=== PATIENT | female | born 1970 | race Caucasian/White ===

== ENCOUNTER 2017-08-23 05:30 | Emergency (ER) | payer BC, OTHER ==
[2017-08-23 05:51] VITALS: BP 132/88; PULSE 79; TEMP 98; BMI 21.1
[2017-08-23] MEDS ORDERED: PHENAZOPYRIDINE HCL 100 MG TABLET (FP) PO ONE (05:59)
[2017-08-23 06:04] LABS: URINE APPEARANCE CLOUDY; URINE BILIRUBIN NEGATIVE (NEGATIVE); URINE BLOOD 2+ (NEGATIVE); URINE COLOR RED; URINE GLUCOSE (UA) NEGATIVE (NEGATIVE); URINE KETONE NEGATIVE (NEGATIVE); URINE NITRITE NEGATIVE (NEGATIVE); URINE UROBILINOGEN NEGATIVE mg/dL (0.2-1.0)
[2017-08-23 06:06] LABS: URINE PROTEIN 2+ (NEGATIVE)
[2017-08-23 06:13] LABS: URINE MUCUS RARE; URINE RBC 5640 /hpf (0-3); URINE WBC 359 /hpf (3-5)
--- NOTE | 2017-08-23 06:17 | PDOC ---
History of Present Illness - General Chief Complaint: Urinary Problem Stated Complaint: URINARY TRACT INFECTION Time Seen by Provider: 08/23/17 06:11 History Source: Patient Exam Limitations: No Limitations - History of Present Illness Initial Comments: 08/23/17 06:15 This is a 47-year-old female who comes in complaining of urinary frequency dysuria and some blood in her urine times several hours. Patient has history of UTI with similar symptoms in the past. Patient denies any back pain flank pain fevers chills nausea vomiting or diarrhea. PAST MEDICAL HISTORY: no significant history PAST SURGICAL HISTORY: no significant history FAMILY HISTORY: no pertinant history SOCIAL HISTORY: Pt lives with family and is employed. MEDICATIONS: reviewed ALLERGIES: As per nursing notes Review of Systems General: No fevers or chills, no weakness, no weight loss HEENT: No change in vision. No sore throat,. No ear pain CardioVascular: No chest pain or shortness of breath Respiratory:No cough, or wheezing. Gastrointestinal: no nausea, vomitting, diarrhea or constipation, No rectal bleeding Genitourinary: Positive history of frequency, dysuria and hematuria Musculoskeletal: No joint or muscle pain or swelling Neurologic: No headache, vertigo, dizziness or loss of consciousness Psychiatric: nor depression Skin: No rashes or easy bruising Endocrine: no increased thirst or abnormal weight change Allergic: no skin or latex allergy All other systems reviewed and normal Exam: General: Well-nourished well-developed individual, no acute distress HEENT: Throat: Normal, tonsils normal, no erythema or exudate Neck: Supple, no meningeal signs, no lymphadenopathy Eyes::Pupils equal reactive and round, extraocular motion intact Abdomen: Soft, nondistended, normal bowel sounds, nontender to palpation diffusely Extremities: Warm, dry, no cyanosis, clubbing, or edema Skin: No rashes Neuro: Alert and oriented x3, nonfocal exam, grossly intact, normal gait Psych: Normal mood and affect Past History - Past Medical History Allergies/Adverse Reactions: Allergies Allergy/AdvReac Type Severity Reaction Status Date / Time No Known Allergies Allergy Verified 08/23/17 05:32 Home Medications: Ambulatory Orders Hydroxychloroquine Sulfate [Plaquenil] 200 mg PO DAILY 08/23/17 Nitrofurantoin Monohyd/M-Cryst [Macrobid -] 100 mg PO BID #14 capsule 08/23/17 Phenazopyridine HCl [Pyridium -] 100 mg PO TID #6 tablet 08/23/17 Tamoxifen Citrate 20 mg PO DAILY 08/23/17 Cancer: Yes (BREAST) - Suicide/Smoking/Psychosocial Hx Smoking History: Never smoked Have you smoked in the past 12 months: No Information on smoking cessation initiated: No Hx Alcohol Use: No Drug/Substance Use Hx: No Substance Use Type: None *Physical Exam - Vital Signs Last Vital Signs Temp Pulse Resp BP Pulse Ox 98 F 79 16 132/88 98 08/23/17 05:44 08/23/17 05:44 08/23/17 05:44 08/23/17 05:44 08/23/17 05:44 ED Treatment Course - ADDITIONAL ORDERS Additional order review: Laboratory Results 08/23/17 05:35 Urine Color Red Urine Appearance Cloudy Urine pH 6.0 Urine Protein 2+ H Urine Glucose (UA) Negative Urine Ketones Negative Urine Blood 2+ H Urine Nitrite Negative Urine Bilirubin Negative Urine Urobilinogen Negative - Medications Given in the ED: ED Medications Discontinued Medications Generic Name Dose Route Start Last Admin Trade Name Ceasar PRN Reason Stop Dose Admin Phenazopyridine HCl 200 mg 08/23/17 05:59 08/23/17 05:59 Pyridium - PO 08/23/17 06:00 200 mg NOW ONE Administration *DC/Admit/Observation/Transfer Diagnosis at time of Disposition: Cystitis - Discharge Dispostion Disposition: HOME Condition at time of disposition: Stable Admit: No - Prescriptions Prescriptions: Nitrofurantoin Monohyd/M-Cryst [Macrobid -] 100 mg PO BID #14 capsule Phenazopyridine HCl [Pyridium -] 100 mg PO TID #6 tablet - Patient Instructions Additional Instructions: Take Macrobid 1 tablet twice a day for the next 7 days. For the symptoms take Pyridium which is a bladder anesthetic and will turn her urine bright orange. Take it 3 times a day for the next 2 days. Return to the emergency department immediately with ANY new, persistent or worsening symptoms. Continue any medications as previously prescribed by your physician. You should follow up with your primary doctor as soon as possible regarding today's emergency department visit. . Please make sure your doctor reviews the results of your emergency evaluation. Thank you for coming to the Emergency Department today for your care. It was a pleasure to see you today. Please note that your evaluation is INCOMPLETE until you follow-up with your doctor.
[2017-08-23] MEDS ORDERED: NITROFURANTOIN MACROCRYSTAL 50 MG CAPSULE (FP) ONE (06:37)
[2017-08-23] MEDS ORDERED: NITROFURANTOIN MACROCRYSTAL 50 MG CAPSULE (FP) PO SCH (06:45)
[2017-08-23 10:05] LABS: URINE LEUK ESTERASE 1+ (NEGATIVE)
== END 2017-08-23 06:41 | disposition home or self-care (01) ==
LOC: FER 05:30
DX: N30.91 Cystitis, unspecified with hematuria (principal); Z87.440 Personal history of urinary (tract) infections
CPT/HCPCS: 81003; 81015; 84703; 87086; 87186; 99282-25